=== PATIENT | female | born 1990 | race Caucasian/White ===

== ENCOUNTER 2017-07-20 19:18 | Inpatient (IN) | END 2017-07-24 11:22 | disposition home or self-care (01) | DRG 781 ==

== ENCOUNTER 2017-08-13 19:16 | Emergency (ER) | END 2017-08-13 23:55 | disposition home or self-care (01) ==

== ENCOUNTER 2017-09-03 19:19 | Emergency (ER) | END 2017-09-04 01:46 | disposition left against medical advice (07) ==

== ENCOUNTER 2017-09-13 01:33 | Inpatient (IN) | END 2017-09-19 17:10 | disposition home health service (06) | DRG 781 ==

== ENCOUNTER 2017-12-17 08:57 | Outpatient (CLI) | END 2017-12-17 13:10 | disposition home or self-care (01) ==

== ENCOUNTER 2017-12-18 10:20 | Outpatient (CLI) | END 2017-12-18 13:06 | disposition home or self-care (01) ==

== ENCOUNTER 2017-12-19 14:36 | Outpatient (CLI) | END 2017-12-19 18:30 | disposition home or self-care (01) ==

== ENCOUNTER 2017-12-20 09:14 | Outpatient (CLI) | END 2017-12-20 11:00 | disposition home or self-care (01) ==

== ENCOUNTER 2017-12-20 14:15 | Outpatient (CLI) | END 2017-12-20 18:20 | disposition home or self-care (01) ==

== ENCOUNTER 2017-12-21 13:00 | Outpatient (CLI) | END 2017-12-21 16:25 | disposition home or self-care (01) ==

== ENCOUNTER 2018-01-14 13:12 | Outpatient (CLI) | END 2018-01-14 16:20 | disposition home or self-care (01) ==

== ENCOUNTER 2018-01-24 12:36 | Outpatient (CLI) | END 2018-01-24 14:15 | disposition home or self-care (01) ==

== ENCOUNTER 2018-02-03 11:43 | Outpatient (CLI) | END 2018-02-03 17:05 | disposition home or self-care (01) ==

== ENCOUNTER 2018-02-06 13:53 | Outpatient (CLI) | END 2018-02-06 16:36 | disposition home or self-care (01) ==

== ENCOUNTER 2018-02-16 17:26 | Outpatient (CLI) | END 2018-02-16 21:15 | disposition home or self-care (01) ==

== ENCOUNTER 2018-02-19 22:30 | Inpatient (IN) | END 2018-02-22 16:15 | disposition home or self-care (01) | DRG 774 ==